=== PATIENT | male | born 1965 | race Caucasian/White ===

== ENCOUNTER 2016-07-22 11:23 | Emergency (ER) | payer MEDICAID ==
[~2016-07-22] VITALS: Ht 167.6 cm; Wt 86.0 kg
[2016-07-22 11:35] VITALS: Ht 167.6 cm; Wt 86.0 kg
[2016-07-22] MEDS ORDERED: BENZ100C70 PO (14:23)
[2016-07-22] MEDS ORDERED: HYDR-906 PO (14:23)
[2016-07-22] MEDS ORDERED: AMOX1TAB10 PO (14:23)
[2016-07-22] MEDS ORDERED: IBUP-1542 PO (14:23)
--- NOTE | 2016-07-22 14:40 | ERD ---
ER Documentation Chief Complaint Date/Time DATE: 07/22/16 TIME: 14:35 Chief Complaint fever, cough x 3 weeks; HPI This is a 50-year-old male brought in by his complaining of fever, productive cough with yellow sputum, runny nose, body ache, weakness and sore throat for 3 weeks. Patient's had the same symptoms 1 week ago. Patient denies any chest pain, shortness of breath, abdominal pain, dysuria, diarrhea, or wheezing. Patient received his flu shot this season. Patient takes ibuprofen for symptom relief. ROS All systems reviewed and are negative except as per history of present illness. Medications Home Meds Active Scripts Benzonatate* (Tessalon Perle*) 100 Mg Capsule, 100 MG PO Q8H Y for COUGH, #30 CAP Prov:JOAN ELIAS 07/22/16 Hydrocodone/Acetaminophen (Tecumseh 5-325 Tablet) 1 Each Tablet, 1 TAB PO Q6H Y for PAIN, #10 TAB Prov:JOAN ELIAS 07/22/16 Ibuprofen* (Motrin*) 600 Mg Tab, 600 MG PO Q6H Y for PAIN AND OR ELEVATED TEMP, #30 TAB Prov:JOAN ELIAS 07/22/16 Amoxicillin/Potassium Clav (Amox-Clav 875-125 mg Tablet) 875-125 mg Tab, 1 TAB PO BID for 10 Days, #20 TAB Prov:JOAN ELIAS 07/22/16 PMhx/Soc Medical and Surgical Hx: pt denies Medical Hx, pt denies Surgical Hx Hx Alcohol Use: No Hx Substance Use: No Hx Tobacco Use: No Physical Exam Vitals Vital Signs Date Time Temp Pulse Resp B/P Pulse Ox O2 Delivery O2 Flow Rate FiO2 07/22/16 11:35 98.9 89 19 139/83 97 Physical Exam Physical Exam CONST: Well-developed, well-nourished, in no acute distress. Nontoxic in appearance. HEENT: Purulent drainage covering the right tympanic membrane. Atraumatic. Normal conjunctiva. EOM intact. External ear is normal. Clear oropharnyx without erythema. No uvular deviation. Moist mucous membranes. Supple neck. No meningismus. No submandibular induration. RESP: Clear to auscultation bilaterally. No wheezing. CARDIO: Regular rate and rhythm, no murmurs. ABD: Soft, non tender, non distended. Normal bowel sounds. No McBurney's point tenderness. No guarding or rigidity. No peritoneal signs. SKIN: No petechiae or rashes. BACK: No midline or flank tenderness. EXT: No cyanosis or edema. Distal pulses equal and bilateral. NEURO: Awake and alert, appropriate for age. Procedures/MDM EMERGENCY DEPARTMENT COURSE/MEDICAL DECISION MAKING This is a 51-year-old male who comes to the emergency room secondary to complaints of fever, productive cough with yellow sputum, runny nose, generalized body ache, generalized weakness and sore throat.. Patient appears nontoxic and is afebrile. Lung sounds are clear upon auscultation. Purulent drainage noted covering the right tympanic membrane. My primary diagnosis is right otitis media. Secondary diagnosis are cough and body aches. Differential diagnoses considered but not limited to pneumonia, bronchitis, influenza, upper respiratory infection, asthma, pharyngitis, peritonsillar abscess, otitis media, otitis externa.. Pt is hemodynamically stable upon reassessment. The patient was discharged for outpatient management with a prescription for ibuprofen, Tessalon, amoxicillin and Tecumseh. The patient was advised to followup with their PMD in 1-2 days and to return to the Emergency Department if there are any new or worsening symptoms. The patient understood and agreed with the diagnosis, treatment and plan. Patient is stable for discharge at this time. Departure Diagnosis: Primary Impression: Otitis media Otitis media type: suppurative Laterality: right Chronicity: chronic Suppurative otitis media location: unspecified location Qualified Code: H66.3X1 - Chronic suppurative otitis media of right ear, unspecified otitis media location Additional Impressions: Cough Body aches Condition: Stable Patient Instructions: Otitis Media, Abx Tx (Adult) [facility] Usted se gupta hecho un examen mdico de control que le indica que no est en meek condicin que requiera tratamiento urgente en el Departamento de Emergencia. Un estudio ms profundo y el tratamiento de hearn condicin pueden esperar sin ningn riesgo hasta que usted sea atendida/o en el consultorio de hearn mdico o meek cl ritesh. Es responsabilidad suya arreglar meek mk para el seguimiento del elizabeth. MANEJO DE CONDICIONES NO URGENTES EN EL FUTURO 1) Si usted tiene un mdico de atencin primaria: Usted debera llamar a hearn mdico de atencin primaria antes de venir al departamento de emergencia. Despus de las horas de consultorio, hearn doctor o hearn asociado/a est disponible por telfono. El mdico o enfermero de josh en el servicio telefnico puede asesorarle por anmol medio para atender el problema, o elizabeth contrario se puede programar meek mk. 2) Si usted no tiene un mdico de atencin primaria: Llame al mdico o clnica de referencia que aparece abajo mike las horas de consultorio para hacer meek mk para que le vean. CLINICAS: [facility] [phone] [facility] [phone] 75[address] [facility]. [facility] [phone] [address] [facility]. [facility] [phone] [facility]. [facility] [phone] 68[address] [facility]. [phone] [address] [facility]. [facility] () Usted se gupta hecho un examen mdico de control que le indica que no est en meek condicin que requiera tratamiento urgente en el Departamento de Emergencia. Un estudio ms profundo y el tratamiento de hearn condicin pueden esperar sin ningn riesgo hasta que usted sea atendida/o en el consultorio de hearn mdico o meek cl ritesh. Es responsabilidad suya arreglar meek mk para el seguimiento del elizabeth. MANEJO DE CONDICIONES NO URGENTES EN EL FUTURO 1) Si usted tiene un mdico de atencin primaria: Usted debera llamar a hearn mdico de atencin primaria antes de venir al departamento de emergencia. Despus de las horas de consultorio, hearn doctor o hearn asociado/a est disponible por telfono. El mdico o enfermero de josh en el servicio telefnico puede asesorarle por anmol medio para atender el problema, o elizabeth contrario se puede programar meek mk. 2) Si usted no tiene un mdico de atencin primaria: Llame al mdico o condado institucions de referencia que aparece abajo mike las horas de consultorio para hacer meek mk para que le vean. SI USTED NO PUEDE PAGAR PARA JES UN MEDICO puede ir a: [facility] [address] [place] [address] [facility] [address] [place] [address] [facility] [address] [place] [address] [facility] [address] [place], [place] [id number] Additional Instructions: Seguimiento con hearn mdico de atencin primaria en 1-2 moore. Volver al Departamento de la emergencia inmediatamente si tiene alguno nuevo o empeoramiento de los sntomas, incontrolada fiebre u otros sntomas inexplicables. [place] todos los medicamentos xavier lo indique. JOAN ELIAS Jul 22, 2016 14:40
== END 2016-07-22 14:37 | disposition home or self-care (01) ==
LOC: FTE 11:23
DX: H66.3X1 Other chronic suppurative otitis media, right ear (principal); R05 Cough; R52 Pain, unspecified
CPT/HCPCS: 99284